=== PATIENT | male | born 1995 | race Caucasian/White ===

== ENCOUNTER 2017-06-01 11:25 | Observation (INO) | payer SELFPAY ==
--- NOTE | 2017-05-31 16:35 | HP ---
HISTORY AND PHYSICAL REASON FOR ADMISSION: Surgery scheduled for 06/01/2017. Efrain Otero is a 21-year-old patient seen with a displaced right elbow olecranon fracture. I recommended open reduction and internal fixation. The procedure, risks, complications, benefits, and recovery were discussed with both the patient and the mother and they were agreeable. Consent was obtained. PAST MEDICAL HISTORY: Noncontributory. PAST SURGICAL HISTORY: Noncontributory. MEDICATIONS ARE: None reported. SOCIAL HISTORY: The patient denies tobacco use. PHYSICAL EXAMINATION: Physical evaluation his right elbow he is tender on the tip of the olecranon with limited range of motion with pain. There are no open wounds. His distal neurovascular exam is intact. Right elbow radiographs revealed a displaced intra-articular fracture of the olecranon process of the right elbow. IMPRESSION: Right elbow displaced olecranon fracture. PLAN: Open reduction and internal fixation, right elbow olecranon fracture. Surgery 06/01/2017. MMODL / IJN: [id number] /
[2017-06-01] MEDS ORDERED: LIDOCAINE 1% 20 ML VIAL (10MG/ML) FOR IV START INTRADERMA PRN (12:54)
[2017-06-01] MEDS ORDERED: ONDANSETRON 4 MG/2 ML VIAL IVP ONE (12:54)
[2017-06-01] MEDS ORDERED: SCOPOLAMINE 1.5MG/72HR PATCH TRANSDERM ONE (12:54)
[2017-06-01] MEDS ORDERED: LACTATED RINGERS 1,000 ML IV SCH (12:54)
[2017-06-01] MEDS ORDERED: DEXAMETHASONE SOD PHOSPHATE 10 MG/ML 1 ML VIAL IV ONE (12:54)
[2017-06-01] MEDS ORDERED: HYDROmorphone 1 MG/ML 1 ML SYRINGE IVP PRN ×3 (12:54→15:29)
[2017-06-01] MEDS ORDERED: MIDAZOLAM 2 MG/2 ML VIAL IV PRN (12:54)
[2017-06-01 13:09] VITALS: BMI 26.2
[2017-06-01 13:32] LABS: Basophils # (A) 0.1 k/uL (0-0.2); Basophils % (A) 1 %; CH 31.4; CHCM 33.3; Eosinophils # (A) 0.2 k/uL (0-0.7); Eosinophils % (A) 4 %; HCT 49.1 % (39.0-53.0); HDW 2.29; HGB 15.8 gm/dL (13.0-17.5); Luc # (Auto) 0.13; Luc % (Auto) 2; Lymphocytes # (A) 1.8 k/uL (1.0-4.8); Lymphocytes % (A) 28 %; MCH 30.5 pg (25.0-35.0); MCHC 32.2 g/dL (31.0-37.0); MCV 94.7 fL (80.0-100.0); Mean Platelet Volume 7.4; Monocytes # (A) 0.5 k/uL (0-1.0); Monocytes % (A) 7 %; Neutrophils # (A) 3.8 k/uL (1.3-7.7); Neutrophils % (A) 59 %; RBC 5.19 m/uL (4.30-5.90); WBC 6.6 k/uL (3.8-10.6); WBC (Perox) 6.49
[2017-06-01] MEDS ORDERED: fentaNYL (PF) 50 MCG/ML 2 ML AMP ONE (13:57)
[2017-06-01] MEDS ORDERED: LIDOCAINE 2%-EPI 1:100,000 20 ML VIAL ONE (13:57)
[2017-06-01] MEDS ORDERED: ROPIVACAINE 5 MG/ML 30 ML VIAL ONE (13:57)
[2017-06-01] MEDS ORDERED: SODIUM CHLORIDE 0.9% 50 ML with ceFAZolin 2,000 MG IV ONE ×2 (13:57)
[2017-06-01] MEDS ORDERED: PROPOFOL 10 MG/ML 20 ML VIAL IV ONE (13:57)
[2017-06-01] MEDS ORDERED: LIDOCAINE 1% INJ 10MG/ML (20 ML MDV) ONE (13:57)
[2017-06-01] MEDS ORDERED: SUCCINYLCHOLINE CHLORIDE 100 MG/5 ML SYR IV ONE (13:57)
[2017-06-01] MEDS ORDERED: ceFAZolin 1,000 MG in SODIUM CHLORIDE 0.9% 1,000 ML IRRIGATION ONE (14:20)
--- NOTE | 2017-06-01 15:28 | P.OP ---
Date of Procedure: 06/01/17 Preoperative Diagnosis: Right elbow displaced olecranon fracture Postoperative Diagnosis: Right elbow displaced olecranon fracture Procedure(s) Performed: Open reduction and internal fixation right elbow olecranon fracture Implants: 2-4.0 cannulated screws Anesthesia: GETA, regional (Interscalene block) Surgeon: Aureliano Naidu Estimated Blood Loss (ml): 20 Pathology: none sent Condition: stable Disposition: PACU Indications for Procedure: 21-year-old patient seen with displaced right elbow olecranon fracture. I recommended open reduction and internal fixation. I reviewed the procedure, risks, complications and recovery. Patient was agreeable and consent was obtained. Operative Findings: see description of procedure Description of Procedure: Patient was taken to the operative suite. Patient had received preoperative IV antibiotics. Patient underwent a general anesthetic by the department of anesthesia. A well-padded tourniquet was placed proximal right upper extremity. The right upper extremity was now prepped and draped in the normal sterile orthopedic fashion. I now elevated the tourniquet to 250. I now made an incision measuring approximately 10 cm over the olecranon sharply through skin. I dissected down to the proximal olecranon. I did elevate some of the distal triceps insertion to better visualize the fracture. I evacuated hematoma. We now reduced the fracture and I inserted 2 guidewires. I checked the position was guidewires on AP and lateral operative imaging. I now depth gauge the guidewires followed by using cannulated drill bits and then inserted to appropriate length 4.0 cannulated screws having good bite and purchase. I now reviewed the construct under AP and lateral intraoperative imaging. We had good reduction of the fracture with reasonable alignment and good position of our fixation. We took the elbow with range of motion and noted good stability. Spot films were obtained intraoperatively document this. The wound was irrigated. The triceps split was repaired with #3 Vicryl. The subcu soft tissues were repaired with 2-0 Vicryl. The skin is proximal skin fernie. I placed sterile dressings. The tourniquet was released with good immediate capillary refill distally noted. Additional sterile web roll was applied followed by a posterior splint. The patient was awakened, transferred to a bed and recovery in stable condition.
[2017-06-01] MEDS ORDERED: ONDANSETRON 4 MG/2 ML VIAL IVP PRN (15:29)
[2017-06-01] MEDS ORDERED: HYDROcodone/APAP 5-325MG 1 EACH TAB PO PRN (15:29)
[2017-06-01] MEDS ORDERED: hydrOXYzine PAMOATE 25 MG CAP PO PRN (15:29)
--- NOTE | 2017-06-01 15:34 | FL ---
Fluoroscopy History: Screw placement 9 seconds of fluoroscopic time
[2017-06-01] MEDS: LACTATED RINGERS 1,000 ML IV SCH (17:58)
[2017-06-01] MEDS: ceFAZolin IN SWFI 2 GM/20 ML SYRINGE IVP SCH (19:52)
[2017-06-01 22:01] VITALS: TEMP 97.6
[2017-06-02] MEDS: ceFAZolin IN SWFI 2 GM/20 ML SYRINGE IVP SCH (02:31)
[2017-06-02] MEDS: HYDROmorphone 1 MG/ML 1 ML SYRINGE IVP PRN ×2 (02:31→09:38)
[2017-06-02] MEDS: LACTATED RINGERS 1,000 ML IV SCH ×2 (02:40→11:56)
[2017-06-02] MEDS: HYDROcodone/APAP 5-325MG 1 EACH TAB PO PRN ×2 (05:53→11:54)
[2017-06-02 09:08] VITALS: BP 139/62; PULSE 66; RESP 18
--- NOTE | 2017-06-02 12:13 | P.PN ---
Subjective Progress Note Date: 06/02/17 Principal diagnosis: Status post open reduction internal fixation right olecranon fracture Patient seen resting today in his hospital bed, he appears comfortable. His pain is well-controlled. He denies any headaches, lightheadedness, chest pain or shortness of breath. Objective - Vital Signs Vital signs: Vital Signs Temp 97.6 F 06/02/17 07:00 Pulse 66 06/02/17 07:00 Resp 18 06/02/17 07:00 BP 139/62 06/02/17 07:00 Pulse Ox 99 06/02/17 07:00 Intake & Output 06/01/17 06/02/17 06/02/17 18:59 06:59 18:59 Intake Total 801 Output Total 20 Balance 781 Weight 95 kg Intake: IV 801 Output: Estimated Blood Loss 20 Other: Voiding Method Toilet Urinal # Voids 2 - Exam Right upper extremity: Initial postop splint is in good position, the Maxwell bandage is well fitting. He is able to wiggle all the fingers, his sensory exam both proximal distal to the splint are intact. His cap refills less than 3 seconds. - Labs CBC & Chem 7: 06/01/17 13:26 Assessment and Plan Plan: Assessment: 1. Postop day #1 status post open reduction internal fixation right olecranon fracture Plan: 1. Pain control, we'll discharge home on oral pain pills, [place] 5 mg/325 mg and Motrin 800 2. Utilize arm sling, do not remove splint 3. Discussed the need for immobilization of the right upper extremity, avoid any excess use 4. Patient to [facility]up at [facility] 2 weeks for further evaluation Time with Patient: Less than 30
--- NOTE | 2017-06-02 12:18 | P.DS ---
Providers Date of admission: 06/02/17 04:12 Expected date of discharge: 06/02/17 Attending physician: Aureliano Naidu Primary care physician: Stated None Hospital Course: Date of admission: 06/01/2017 Date of discharge: 06/02/2017 Admission diagnosis: Status post open reduction internal fixation right olecranon fracture Discharge diagnosis: Same Attending physician: Dr. Naidu Surgical procedures: Open reduction internal fixation right olecranon fracture Brief history: Patient is a 21-year-old male who presented to [facility] for evaluation of an elbow injury on the right side. He was seen by Dr. Naidu, was terminated displaced right olecranon fracture. It was determined the patient would need surgical fixation, he was scheduled on 2016 for this procedure. Hospital course: Details of patient's surgery can be found in operative report. Patient tolerated the procedure well and was subsequently transported to orthopedic floor. Patient received very few doses of IV pain medication during his stay. There was no acute changes in his health during short stay. Plan is for discharge to home on postoperative day #1. Discharge condition/disposition: Patient will be discharged [home] in stable condition. Discharge medications: Instructions are given on resumption of patient's normal daily medications per primary care recommendation, in addition patient will be prescribed [place] 5 mg/325 mg, Motrin 800 mg. Discharge instructions: 1. Do not remove arm splint, utilize arm sling 2. Avoid any activity with right upper extremity 3. Follow up in office at 2 weeks postop with Sam Fagan PA-C 4. Follow up with your primary care doctor 7-10 days after discharge. 5. Contact [facility] with any questions, . Procedures: Open reduction internal fixation right olecranon fracture Patient Condition at Discharge: Good Plan - Discharge Summary New Discharge Prescriptions: New Hydrocodone/Acetaminophen [[place] 5-325] 1 each PO Q6HR PRN #40 tab PRN Reason: Pain Ibuprofen 800 mg PO Q8HR PRN #40 tablet PRN Reason: Pain Discharge Medication List Hydrocodone/Acetaminophen [[place] 5-325] 1 each PO Q6HR PRN #40 tab 06/02/17 [Rx] Ibuprofen 800 mg PO Q8HR PRN #40 tablet 06/02/17 [Rx] Follow up Appointment(s)/Referral(s): Pedro Fagan, PAC [PHYSICIAN [employer]TRASONIC SOLDERER] - 2 Weeks Activity/Diet/Wound Care/Special Instructions: Discharge instructions: 1. Utilize arm sling, do not remove splint 2. Keep splint clean and dry 3. Pain medication as needed 4. Avoid excess activity with right upper extremity 5. Follow-up at [facility] in 2 weeks Discharge Disposition: HOME SELF-CARE
--- NOTE | 2017-06-02 15:45 | P.ONQ ---
Anesthesiology Proc Note - PNB - Peripheral Nerve Block Performed Right Interscalene Single Time Out Performed: Yes Procedure Start Time: 13:44 Procedure Stop Time: 13:50 Indication: Acute Post-Operative Pain, Requested by physician Sedation Type: Awake Preparation: Sterile Prep Position: Supine Needle Size: 50mm (2") Needle Gauge: 21 Technique: Ultrasound (ropi .5% 25cc plus xylo 1% 10cc) Blood Aspirated: No Pain Paresthesia on Injection Noted: No Resistance on Injection: Normal Events: Uneventful and Well Tolerated
== END 2017-06-02 12:50 | disposition home or self-care (01) ==
LOC: OR 11:25 → 5MS5E 15:19 → OR 06-02 04:12
PROVIDERS: ADMIT Orthopaedic Surgery; ATTEND Orthopaedic Surgery
DX: S52.031A Displaced fracture of olecranon process with intraarticular extension of right ulna, initial encounter for closed fracture (principal); X58.XXXA Exposure to other specified factors, initial encounter
CPT/HCPCS: 24685; 64415; 85025; 73070; G0378; C1713; J2250; J1100; J0690 ×4; J2405; J2001; J3010; J1170 ×2; J2795; J0330; J2704

== ENCOUNTER 2019-06-14 14:35 | Emergency (ER) | payer OTHER ==
[2019-06-14 14:53] VITALS: TEMP 98.1
[2019-06-14 15:02] LABS: Glucose,Whole Blood 89 mg/dL (75-99)
[2019-06-14] MEDS ORDERED: predniSONE 20 MG TAB PO STA (15:12)
[2019-06-14] MEDS ORDERED: valACYclovir HCL 1,000 MG TABLET PO STA (15:12)
--- NOTE | 2019-06-14 15:19 | ED ---
General Adult HPI - General Chief complaint: Neuro Symptoms/Deficit Stated complaint: lt sided facial droop Time Seen by Provider: 06/14/19 14:55 Source: patient, RN notes reviewed, old records reviewed Mode of arrival: ambulatory Limitations: no limitations - History of Present Illness Initial comments: This is a 23-year-old male who presents emergency Department complaining of left-sided facial drooping as well as his eye tearing tried out with is contacted. Patient states the symptoms started and gotten progressively worse to the point where today he has no movement on the left side of his face at all. Patient denies any visual disturbance or speech disturbance. Patient denies any numbness or weakness of any extremities. Patient states he went to work and had no issues with operating heavy machinery and/or walking. Patient denies any headache. Patient denies any lightheadedness or dizziness. Patient states he did have a little bit of a sore throat earlier in the week but his subsided now. - Related Data Previous Rx's Medication Instructions Recorded Hydrocodone/Acetaminophen [[place] 1 each PO Q6HR PRN #40 tab 06/02/17 5-325] Ibuprofen 800 mg PO Q8HR PRN #40 tablet 06/02/17 predniSONE 25 mg PO DAILY #10 tab 06/14/19 valACYclovir HCL [Valacyclovir] 1,000 mg PO Q8H 10 Days tab 06/14/19 Allergies Allergy/AdvReac Type Severity Reaction Status Date / Time No Known Allergies Allergy Verified 06/14/19 14:51 Review of Systems ROS Statement: Those systems with pertinent positive or pertinent negative responses have been documented in the HPI. ROS Other: All systems not noted in ROS Statement are negative. Past Medical History Past Medical History: No Reported History History of Any Multi-Drug Resistant Organisms: None Reported Past Surgical History: No Surgical Hx Reported Past Anesthesia/Blood Transfusion Reactions: No Reported Reaction Past Psychological History: No Psychological Hx Reported Smoking Status: Never smoker Past Alcohol Use History: Occasional Past Drug Use History: None Reported General Exam - General Exam Comments Initial Comments: GENERAL: Patient is well-developed and well-nourished. Patient is nontoxic and well- hydrated and is in no acute distress. ENT: Neck is soft and supple. No significant lymphadenopathy is noted. Oropharynx is clear. Moist mucous membranes. Neck has full range of motion without eliciting any pain. EYES: The sclera were anicteric and conjunctiva were pink and moist. Extraocular movements were intact and pupils were equal round and reactive to light. Eyelids were unremarkable. PULMONARY: Unlabored respirations. Good breath sounds bilaterally. No audible rales rhonchi or wheezing was noted. CARDIOVASCULAR: There is a regular rate and rhythm without any murmurs gallops or rubs. ABDOMEN: Soft and nontender with normal bowel sounds. No palpable organomegaly was noted. There is no palpable pulsatile mass. SKIN: Skin is clear with no lesions or rashes and otherwise unremarkable. NEUROLOGIC: Patient is alert and oriented x3. She has complete facial paralysis including the forehead on the left. Patient is unable to close the left eyelid and an attempt to do so his eye has an upper gaze Motor and sensory are also intact. Normal speech, volume and content. Symmetrical smile. MUSCULOSKELETAL: Normal extremities with adequate strength and full range of motion. No lower extremity swelling or edema. No calf tenderness. LYMPHATICS: No significant lymphadenopathy is noted PSYCHIATRIC: Normal psychiatric evaluation. Limitations: no limitations Course Vital Signs 06/14/19 14:51 Temperature 98.1 F Pulse Rate 86 Respiratory 18 Rate Blood Pressure 149/80 O2 Sat by Pulse 96 Oximetry Medical Decision Making - Lab Data Lab Results 06/14/19 Range/Units 14:59 POC Glucose (mg/dL) 89 (75-99) mg/dL POC [employer] Lawyer ID Benja Joshi Disposition Clinical Impression: Cortes's palsy Disposition: HOME SELF-CARE Condition: Good Instructions (If sedation given, give patient instructions): [place] Palsy (ED) Prescriptions: predniSONE 25 mg PO DAILY #10 tab valACYclovir HCL [Valacyclovir] 1,000 mg PO Q8H 10 Days tab Is patient prescribed a controlled substance at d/c from ED?: No Referrals: Alexandra Alexandra MD [Primary Care Provider] - 1-2 days Time of Disposition: 15:16
[2019-06-14 16:06] VITALS: BP 147/84; PULSE 79; RESP 16
== END 2019-06-14 16:00 | disposition home or self-care (01) ==
LOC: EC 14:35
DX: G51.0 Bell's palsy (principal)
CPT/HCPCS: 36415; 87081; 87430; 99284; J7512

== ENCOUNTER 2020-07-12 14:24 | Emergency (ER) | payer OTHER ==
[2020-07-12 14:36] VITALS: BP 122/63; PULSE 85; RESP 18; TEMP 98.2
--- NOTE | 2020-07-12 15:17 | ED ---
General Adult HPI - General Chief complaint: Extremity Injury, Lower Stated complaint: Lft ankle pain Time Seen by Provider: 07/12/20 14:49 Source: patient Mode of arrival: ambulatory Limitations: no limitations - History of Present Illness Initial comments: 24-year-old male presents to the emergency room for a chief complaint of left ankle pain times one week. Patient states last Sunday he was jumping off of an object about 3 feet above the ground. Patient states he landed on an inverted left ankle. States it has been painful to walk on it ever since. Patient states it sometimes hurts on the top of his foot as well. States it does not seem to be getting significantly better so hr presented to the emergency room. He denies any head injury. Denies any loss of sensation in the left foot.Patient has no other complaints at this time including shortness of breath, chest pain, abdominal pain, nausea or vomiting, headache, or visual changes. - Related Data Home Medications Medication Instructions Recorded Confirmed Dextroamphetamine/Amphetamine 20 mg PO TID PRN 07/12/20 07/12/20 [Adderall] Allergies Allergy/AdvReac Type Severity Reaction Status Date / Time No Known Allergies Allergy Verified 07/12/20 15:49 Review of Systems ROS Statement: Those systems with pertinent positive or pertinent negative responses have been documented in the HPI. ROS Other: All systems not noted in ROS Statement are negative. Past Medical History Past Medical History: No Reported History History of Any Multi-Drug Resistant Organisms: None Reported Past Surgical History: No Surgical Hx Reported, Orthopedic Surgery Past Anesthesia/Blood Transfusion Reactions: No Reported Reaction Past Psychological History: No Psychological Hx Reported Smoking Status: Never smoker Past Alcohol Use History: Occasional Past Drug Use History: Marijuana General Exam Limitations: no limitations General appearance: alert, in no apparent distress Head exam: Present: atraumatic Eye exam: Present: normal appearance, PERRL, EOMI. Absent: scleral icterus ENT exam: Present: normal exam, mucous membranes moist Neck exam: Present: normal inspection, full ROM. Absent: tenderness Respiratory exam: Present: normal lung sounds bilaterally. Absent: respiratory distress Cardiovascular Exam: Present: regular rate, normal rhythm, normal heart sounds Extremities exam: Present: full ROM (Full range of motion of the left ankle.), normal capillary refill (Capillary refill less than 2 seconds, DP pulse 2+ left lower extremity.), joint swelling (Patient does have minimal edema noted to the lateral and medial malleolus.), other (Sensation intact left lower extremity). Absent: tenderness (No significant tenderness of the left ankle or forefoot. No tenderness to the heel. No tenderness of the foot including the fifth metatarsal or navicular.), calf tenderness Course Vital Signs 07/12/20 14:33 Temperature 98.2 F Pulse Rate 85 Respiratory 18 Rate Blood Pressure 122/63 O2 Sat by Pulse 100 Oximetry Medical Decision Making - Medical Decision Making HPI physical exam is documented. Patient has mild edema of the left ankle with slight ecchymosis. No tenderness in the left foot. She has been ambulating for a week now. He does have crutches at home that he has not been using. X-ray of the ankle and foot were obtained. There is generalized soft tissue swelling at the ankle with underlying tibiotalar joint effusion. No acute osseous normality such as fracture seen. Aircast was applied. Rice therapy discussed. Patient referred to orthopedics. Will return here for any worsening symptoms. I discussed this case and reviewed xrays with attending Dr. Longoria who agrees with this assessment and treatment plan. Disposition Clinical Impression: Ankle pain, left Disposition: HOME SELF-CARE Condition: Good Instructions (If sedation given, give patient instructions): Ankle Sprain (ED) Additional Instructions: Please take Motrin and Tylenol for pain. Rest ice and elevate the left foot. Use air cast. Follow up with orthopedics. Return to the emergency room for any worsening symptoms. Is patient prescribed a controlled substance at d/c from ED?: No Referrals: Alexandra Alexandra MD [Primary Care Provider] - 1-2 days Franklin Jackson DO [Doctor of Osteopathic Medicine] - 1-2 days Time of Disposition: 16:07
--- NOTE | 2020-07-12 15:48 | XR ---
EXAMINATION TYPE: XR ankle complete 3 views LT, XR foot complete 3 views LT DATE OF EXAM: 07/12/2020 COMPARISON: NONE HISTORY: 24-year-old male with left ankle pain FINDINGS: Ankle: Generalized soft tissue swelling. Ankle mortise is congruent with preservation of the distal fibula o verlap. Talar dome is intact. No acute fracture, subluxation, or dislocation. Subtalar joint is align ed. Foot: Underlying tibiotalar joint effusion. Bipartite tibial sesamoid. Hdez's toe. No acute fracture, sub luxation, or dislocation. IMPRESSION (ankle and foot): Generalized soft tissue swelling at the ankle with underlying joint effusion. No acute osseous abnorm ality seen.
== END 2020-07-12 16:29 | disposition home or self-care (01) ==
LOC: EC 14:24
DX: S90.02XA Contusion of left ankle, initial encounter (principal); X50.1XXA Overexertion from prolonged static or awkward postures, initial encounter
CPT/HCPCS: 73610; 73630; 99283; 29515; L4350

== ENCOUNTER 2020-12-29 00:47 | Emergency (ER) | payer OTHER ==
[2020-12-29 00:53] VITALS: RESP 18; TEMP 98.1
[2020-12-29] MEDS ORDERED: KETOROLAC 15 MG/ML 1 ML VIAL IVP STA (01:13)
--- NOTE | 2020-12-29 01:18 | ED ---
Abdominal Pain HPI - General Chief Complaint: Abdominal Pain Stated Complaint: Abdominal Pain Time Seen by Provider: 12/29/20 00:57 Source: patient Mode of arrival: ambulatory Limitations: no limitations - History of Present Illness Initial Comments: This patient is 25-year-old man who complains of left lower abdominal pain that radiates to the testicles. He states that it started a bit after 6 PM after he had eaten. The patient describes it as a feeling as if his bladder is very full, but states that he had been able to urinate without any problems so he does not believe it is related to his bladder. Patient has not noted worsening or relieving factors. No other associated symptoms. Last bowel movement had been earlier in the day and was normal. MD Complaint: flank pain Onset/Timin -: hour(s) Location: L flank Radiation: other (Groin) Severity: moderate Quality: fullness Consistency: constant Improves With: nothing Worsens With: nothing Associated Symptoms: denies other symptoms - Related Data Home Medications Medication Instructions Recorded Confirmed Dextroamphetamine/Amphetamine 20 mg PO TID PRN 07/12/20 07/12/20 [Adderall] Previous Rx's Medication Instructions Recorded Ciprofloxacin HCl [Cipro] 500 mg PO Q12HR #14 tablet 12/29/20 metroNIDAZOLE [Flagyl] 500 mg PO TID #21 tab 12/29/20 Allergies Allergy/AdvReac Type Severity Reaction Status Date / Time No Known Allergies Allergy Verified 12/29/20 00:53 Review of Systems ROS Statement: Those systems with pertinent positive or pertinent negative responses have been documented in the HPI. ROS Other: All systems not noted in ROS Statement are negative. Constitutional: Denies: fever, chills Respiratory: Denies: cough, dyspnea Cardiovascular: Denies: chest pain, palpitations Gastrointestinal: Reports: as per HPI, abdominal pain. Denies: nausea, vomiting, diarrhea, constipation, hematemesis, melena, hematochezia Genitourinary: Reports: testicular pain. Denies: dysuria, frequency, hematuria, testicular mass Musculoskeletal: Denies: back pain Skin: Denies: rash Neurological: Denies: headache, weakness, numbness Past Medical History Past Medical History: No Reported History History of Any Multi-Drug Resistant Organisms: None Reported Past Surgical History: No Surgical Hx Reported, Orthopedic Surgery Past Anesthesia/Blood Transfusion Reactions: No Reported Reaction Past Psychological History: No Psychological Hx Reported Smoking Status: Vaper Past Alcohol Use History: Occasional Past Drug Use History: Marijuana General Exam Limitations: no limitations General appearance: alert, in no apparent distress Head exam: Present: atraumatic, normocephalic Eye exam: Present: normal appearance. Absent: scleral icterus, conjunctival injection ENT exam: Present: normal oropharynx Neck exam: Present: normal inspection Respiratory exam: Present: normal lung sounds bilaterally. Absent: respiratory distress, wheezes, rales, rhonchi, stridor Cardiovascular Exam: Present: regular rate, normal rhythm, normal heart sounds. Absent: systolic murmur, diastolic murmur, rubs, gallop GI/Abdominal exam: Present: soft, normal bowel sounds. Absent: distended, tenderness, guarding, rebound, rigid, mass, pulsatile mass, hernia exam: Present: normal inspection, vertical testicular lie, circumcision. Absent: testicular tenderness, urethral discharge, scrotal swelling Extremities exam: Present: normal inspection, normal capillary refill. Absent: pedal edema, calf tenderness Back exam: Present: normal inspection. Absent: CVA tenderness (R), CVA tenderness (L) Neurological exam: Present: alert Skin exam: Present: warm, dry, intact, normal color. Absent: rash Course Vital Signs 12/29/20 12/29/20 00:49 02:31 Temperature 98.1 F Pulse Rate 79 74 Respiratory 18 18 Rate Blood Pressure 115/80 135/76 O2 Sat by Pulse 100 100 Oximetry Medical Decision Making - Lab Data Result diagrams: 12/29/20 01:11 12/29/20 01:11 Lab Results 12/29/20 12/29/20 12/29/20 Range/Units 01:11 01:11 01:11 WBC 14.7 H (3.8-10.6) k/uL RBC 4.98 (4.30-5.90) m/uL Hgb 15.8 (13.0-17.5) gm/dL Hct 45.6 (39.0-53.0) % MCV 91.4 (80.0-100.0) fL MCH 31.6 (25.0-35.0) pg MCHC 34.6 (31.0-37.0) g/dL RDW 12.3 (11.5-15.5) % Plt Count 197 (150-450) k/uL MPV 7.2 Neutrophils % 74 % Lymphocytes % 14 % Monocytes % 6 % Eosinophils % 3 % Basophils % 1 % Neutrophils # 10.9 H (1.3-7.7) k/uL Lymphocytes # 2.1 (1.0-4.8) k/uL Monocytes # 0.9 (0-1.0) k/uL Eosinophils # 0.4 (0-0.7) k/uL Basophils # 0.1 (0-0.2) k/uL Sodium 139 (137-145) mmol/L Potassium 4.2 (3.5-5.1) mmol/L Chloride 102 (98-107) mmol/L Carbon Dioxide 29 (22-30) mmol/L Anion Gap 8 mmol/L BUN 24 H (9-20) mg/dL Creatinine 0.88 (0.66-1.25) mg/dL Est GFR (CKD-EPI)AfAm >90 (>60 ml/min/1.73 sqM) Est GFR (CKD-EPI)NonAf >90 (>60 ml/min/1.73 sqM) Glucose 88 (74-99) mg/dL Calcium 10.7 H (8.4-10.2) mg/dL Total Bilirubin 0.2 (0.2-1.3) mg/dL AST 27 (17-59) U/L ALT 29 (4-49) U/L Alkaline Phosphatase 114 (38-126) U/L Total Protein 7.2 (6.3-8.2) g/dL Albumin 4.4 (3.5-5.0) g/dL Amylase 77 (30-110) U/L Lipase 134 (23-300) U/L Urine Color Light Yellow Urine Appearance Clear (Clear) Urine pH 7.0 (5.0-8.0) Ur Specific [place] 1.008 (1.001-1.035) Urine Protein Negative (Negative) Urine Glucose (UA) Negative (Negative) Urine Ketones Negative (Negative) Urine Blood Negative (Negative) Urine Nitrite Negative (Negative) Urine Bilirubin Negative (Negative) Urine Urobilinogen <2.0 (<2.0) mg/dL Ur Leukocyte Esterase Negative (Negative) Disposition Clinical Impression: Diverticulitis Disposition: HOME SELF-CARE Condition: Good Instructions (If sedation given, give patient instructions): Diverticulitis (ED) Prescriptions: Ciprofloxacin HCl [Cipro] 500 mg PO Q12HR #14 tablet metroNIDAZOLE [Flagyl] 500 mg PO TID #21 tab Is patient prescribed a controlled substance at d/c from ED?: No Referrals: None,Stated [Primary Care Provider] - 1-2 days
[2020-12-29 01:21] LABS: Basophils # (A) 0.1 k/uL (0-0.2); Basophils % (A) 1 %; Eosinophils # (A) 0.4 k/uL (0-0.7); Eosinophils % (A) 3 %; HCT 45.6 % (39.0-53.0); HGB 15.8 gm/dL (13.0-17.5); Lymphocytes # (A) 2.1 k/uL (1.0-4.8); Lymphocytes % (A) 14 %; MCH 31.6 pg (25.0-35.0); MCHC 34.6 g/dL (31.0-37.0); MCV 91.4 fL (80.0-100.0); Mean Platelet Volume 7.2; Monocytes # (A) 0.9 k/uL (0-1.0); Monocytes % (A) 6 %; Neutrophils # (A) 10.9 k/uL (1.3-7.7); Neutrophils % (A) 74 %; Platelet Count 197 k/uL (150-450); RBC 4.98 m/uL (4.30-5.90); RDW 12.3 % (11.5-15.5); WBC 14.7 k/uL (3.8-10.6)
[2020-12-29 01:50] LABS: ALT 29 U/L (4-49); AST 27 U/L (17-59); African American GFR (CKD) >90 (>60 ml/min/1.73 sqM); Albumin 4.4 g/dL (3.5-5.0); Alkaline Phosphatase 114 U/L (38-126); Amylase 77 U/L (30-110); Anion Gap 8 mmol/L; Appearance,Urine Clear (Clear); Bilirubin,Urine Negative (Negative); Blood Urea Nitrogen 24 mg/dL (9-20); Blood,Urine Negative (Negative); Calcium 10.7 mg/dL (8.4-10.2); Carbon Dioxide 29 mmol/L (22-30); Chloride 102 mmol/L (98-107); Color,Urine Light Yellow; Glucose 88 mg/dL (74-99); Glucose,Urine (UA) Negative (Negative); Ketones,Urine Negative (Negative); Leukocyte Esterase,Urine Negative (Negative); Lipase 134 U/L (23-300); Nitrite,Urine Negative (Negative); Non-African American GFR(CKD) >90 (>60 ml/min/1.73 sqM); Potassium 4.2 mmol/L (3.5-5.1); Protein,Urine Negative (Negative); Sodium 139 mmol/L (137-145); Specific Gravity,Urine 1.008 (1.001-1.035); Total Bilirubin 0.2 mg/dL (0.2-1.3); Total Protein 7.2 g/dL (6.3-8.2); Urobilinogen,Urine <2.0 mg/dL (<2.0)
[2020-12-29 02:32] VITALS: BP 135/76; PULSE 74
[2020-12-29] MEDS ORDERED: MORPHINE SULFATE 4 MG/ML SYRINGE IV STA (02:44)
--- NOTE | 2020-12-29 03:28 | CT ---
EXAMINATION TYPE: CT abdomen pelvis w con DATE OF EXAM: 12/29/2020 COMPARISON: None HISTORY: LLQ pain CT DLP: 909.4 mGycm Automated exposure control for dose reduction was used. CONTRAST: Performed with IV Contrast, patient injected with 100 mL of Isovue 300. Images obtained from the diaphragm to the floor the pelvis with IV contrast. Lung bases are clear. There is no pleural effusion. Heart size is normal. There is no pericardial eff usion. Liver spleen stomach pancreas gallbladder appear intact. Bile ducts are not dilated. Gallbladder is c ontracted. There is no adrenal mass. Kidneys show satisfactory contrast opacification. There is no hydronephrosi s. The ureters are not dilated. There is no retroperitoneal adenopathy. Bladder distends smoothly. Th ere is small amount of free fluid with low density in the pelvis. There are multiple sigmoid divertic brianna. There is fat stranding around the proximal sigmoid colon with a large diverticulum. There is mil d wall thickening. There is no drainable fluid collection. Appendix appears normal. There is no ascites or free air. There is no sign of a bowel obstruction. Th e delayed images show normal renal excretion. Lumbar vertebra have normal alignment. Posterior elements are intact. Disc spaces are fairly normal. There is no compression fracture. Bony pelvis is intact. Hip joints are intact. There is no hip dyspl eric. IMPRESSION: Sigmoid diverticulosis with evidence of diverticulitis in the proximal sigmoid colon.
[2020-12-29] MEDS ORDERED: metroNIDAZOLE 500 MG TAB PO STA (03:39)
[2020-12-29] MEDS ORDERED: LEVOFLOXACIN 750 MG TAB PO STA (03:39)
== END 2020-12-29 03:57 | disposition home or self-care (01) ==
LOC: EC 00:47
DX: K57.32 Diverticulitis of large intestine without perforation or abscess without bleeding (principal); F17.290 Nicotine dependence, other tobacco product, uncomplicated
CPT/HCPCS: 99284; 96374; 96375; 36415; 80053; 82150; 83690; 85025; 81003; 74177; J2270; J1885; Q9967

== ENCOUNTER 2022-05-02 18:56 | Emergency (ER) | payer OTHER ==
[2022-05-02 19:07] VITALS: BP 141/71; PULSE 100; RESP 18; TEMP 98
[2022-05-02] MEDS ORDERED: LIDOCAINE 1% INJ 10MG/ML (30 ML VIAL-PF) SQ ONE (19:19)
--- NOTE | 2022-05-02 20:38 | XR ---
EXAMINATION TYPE: XR hand complete LT DATE OF EXAM: 05/02/2022 7:48 PM INDICATION: Patient age:Male; 26 years old; Reason for study: thumb and pointer finger laceration; COMPARISON: None TECHNIQUE: Frontal, lateral and oblique views of the left hand were obtained. FINDINGS: Normal alignment of the visualized joints. No acute osseous pathology is identified. No e vidence of soft tissue swelling. No radiopaque foreign body. IMPRESSION: No acute osseous pathology.
--- NOTE | 2022-05-02 21:11 | ED ---
Wound/Laceration HPI - General Chief Complaint: Wound/Laceration Stated Complaint: Hand/Finger Lac Time Seen by Provider: 05/02/22 19:08 Source: patient Mode of arrival: ambulatory Limitations: no limitations - History of Present Illness Initial Comments: Patient is a 26-year-old male presenting with chief complaint of laceration. Patient was hunting today, while using his hunting knife on anterior he sustained a laceration to the left thumb and index finger. Patient states his last tetanus shot was less than 5 years ago. Patient attempted to clean and wrapped the wound prior to presenting to the ER. No numbness or tingling. He has full range of motion and sensation. - Related Data Home Medications Medication Instructions Recorded Confirmed Dextroamphetamine/Amphetamine 20 mg PO TID PRN 07/12/20 07/12/20 [Adderall] Previous Rx's Medication Instructions Recorded Ciprofloxacin HCl [Cipro] 500 mg PO Q12HR #14 tablet 12/29/20 metroNIDAZOLE [Flagyl] 500 mg PO TID #21 tab 12/29/20 Cephalexin [Keflex] 500 mg PO Q12HR 5 Days #10 cap 05/02/22 Allergies Allergy/AdvReac Type Severity Reaction Status Date / Time No Known Allergies Allergy Verified 05/02/22 19:07 Review of Systems ROS Statement: Those systems with pertinent positive or pertinent negative responses have been documented in the HPI. ROS Other: All systems not noted in ROS Statement are negative. Past Medical History Past Medical History: No Reported History History of Any Multi-Drug Resistant Organisms: None Reported Past Surgical History: No Surgical Hx Reported, Orthopedic Surgery Past Anesthesia/Blood Transfusion Reactions: No Reported Reaction Past Psychological History: No Psychological Hx Reported Smoking Status: Vaper Past Alcohol Use History: Occasional Past Drug Use History: Marijuana General Exam Limitations: no limitations General appearance: alert, in no apparent distress Head exam: Present: atraumatic, normocephalic, normal inspection Eye exam: Present: normal appearance Neck exam: Present: normal inspection Neurological exam: Present: alert, oriented X3, CN II-XII intact Psychiatric exam: Present: normal affect, normal mood Expanded Type of lesion: Present: laceration (Laceration to the left thumb and index finger) Course Vital Signs 05/02/22 19:05 Temperature 98 F Pulse Rate 100 Respiratory 18 Rate Blood Pressure 141/71 O2 Sat by Pulse 100 Oximetry Procedures - Laceration Laceration #1 Consent Obtained: verbal consent Indication: laceration Site: hand (Left thumb) Size (cm): 4 Description: linear Depth: simple, single layer Anesthetic Used: lidocaine 1%, without epi Anesthesia Technique: local infiltration Amount (mls): 2 Pre-repair: wound explored, irrigated extensively, deep structures intact Type of Sutures: nylon Size of Sutures: 4-0 Number of Sutures: 6 Technique: simple, interrupted Patient Tolerated Procedure: well Laceration #2 Consent Obtained: verbal consent Indication: laceration Site: hand (Left index finger) Size (cm): 2 Description: linear Depth: simple, single layer Anesthetic Used: lidocaine 1%, without epi Anesthesia Technique: local infiltration Pre-repair: wound explored, irrigated extensively, deep structures intact Type of Sutures: nylon Size of Sutures: 4-0 Number of Sutures: 3 Technique: simple, interrupted Patient Tolerated Procedure: well Medical Decision Making - Medical Decision Making Patient is a 26-year-old male presenting with chief complaint of laceration to the left thumb and index finger sustained while using a hunting knife today. His last tetanus shot was less than 5 years ago. On examination there is a 4 cm laceration to the thumb and 3 cm laceration to the index finger. X-ray obtained shows no fracture or foreign body. Wounds are anesthetized with 1% lidocaine. Irrigated thoroughly with 1 L sterile water. Repaired using simple interrupted sutures with 4-0 nylon. Patient is placed on Keflex. Educated on wound care, supportive treatment, and signs of infection. Follow-up with PCP. Report back to ER with any new or worsening symptoms. Discussed return parameters and answered all questions. Patient conveyed verbal understanding and agreed to the plan. I discussed this case in detail with my attending Dr. White Disposition Clinical Impression: Laceration Disposition: HOME SELF-CARE Condition: Good Instructions (If sedation given, give patient instructions): Care For Your Stitches (ED), Finger Laceration (ED) Additional Instructions: Follow-up with PCP. Report back to ER with any new or worsening symptoms. Keep the wound clean, dry, and covered. Avoid fully submerging the wound, such as baths and swimming. He may wash regularly with gentle soap and water. Monitor for signs of infection, including but not limited to redness, swelling, warmth, tenderness, discharge, fever, chills, red streaking up the hand. Take antibiotic as prescribed. Take Motrin and Tylenol as needed for pain control. Sutures may be removed in 10-14 days. Prescriptions: Cephalexin [Keflex] 500 mg PO Q12HR 5 Days #10 cap Is patient prescribed a controlled substance at d/c from ED?: No Referrals: Alexandra Alexandra MD [Primary Care Provider] - 1-2 days Time of Disposition: 21:11
== END 2022-05-02 21:20 | disposition home or self-care (01) ==
LOC: EC 18:56
DX: S61.211A Laceration without foreign body of left index finger without damage to nail, initial encounter (principal); S61.012A Laceration without foreign body of left thumb without damage to nail, initial encounter; F17.290 Nicotine dependence, other tobacco product, uncomplicated; F12.90 Cannabis use, unspecified, uncomplicated; W26.0XXA Contact with knife, initial encounter
CPT/HCPCS: 73130; 99283; 12002; J2001